=== PATIENT | female | born 1990 | race Caucasian/White ===

== ENCOUNTER 2017-09-12 13:18 | Emergency (ER) | payer OTHER ==
[2017-09-12] MEDS ORDERED: SODIUM CHLORIDE 0.9% 1,000 ML IV STA (14:54)
[2017-09-12 15:23] LABS: Basophils % (A) 1 %; CH 32.5; Eosinophils % (A) 1 %; HCT 41.7 % (34.0-46.0); HDW 2.26; HGB 13.6 gm/dL (11.4-16.0); Luc # (Auto) 0.11; Luc % (Auto) 2; Lymphocytes # (A) 0.9 k/uL (1.0-4.8); Lymphocytes % (A) 17 %; MCH 31.4 pg (25.0-35.0); MCHC 32.7 g/dL (31.0-37.0); MCV 96.1 fL (80.0-100.0); Monocytes # (A) 0.4 k/uL (0-1.0); Monocytes % (A) 8 %; Neutrophils # (A) 3.8 k/uL (1.3-7.7); Neutrophils % (A) 72 %; RBC 4.34 m/uL (3.80-5.40); RDW 12.1 % (11.5-15.5); WBC 5.2 k/uL (3.8-10.6); WBC (Perox) 5.46
[2017-09-12 15:25] VITALS: TEMP 98
[2017-09-12 15:33] LABS: ALT 24 U/L (9-52); AST 31 U/L (14-36); Alkaline Phosphatase 63 U/L (38-126); Anion Gap 7 mmol/L; Blood Urea Nitrogen 16 mg/dL (7-17); Carbon Dioxide 27 mmol/L (22-30); Chloride 103 mmol/L (98-107); Glucose 102 mg/dL (74-99); Non-African American GFR(MDRD) >60 (>60 ml/min/1.73 sqM); Potassium 4.4 mmol/L (3.5-5.1); Sodium 137 mmol/L (137-145); Total Bilirubin 0.4 mg/dL (0.2-1.3); Total Protein 6.8 g/dL (6.3-8.2)
--- NOTE | 2017-09-12 15:44 | XR ---
EXAMINATION TYPE: XR chest 2V DATE OF EXAM: 09/12/2017 COMPARISON: None HISTORY: 27-year-old female difficulty breathing TECHNIQUE: PA and lateral views FINDINGS: The cardiomediastinal silhouette, aorta, and pulmonary vasculature are within normal limits. Minimal peribronchial cuffing. Prominent to the retrosternal clear space. Lungs and pleural spaces are clear. IMPRESSION: There is mild hyperinflation and minimal peribronchial cuffing. Query possibility of asthma. Otherwis e, no acute cardiopulmonary process.
--- NOTE | 2017-09-12 16:05 | ED ---
General Adult HPI - General Chief complaint: Recheck/Abnormal Lab/Rx Stated complaint: Dr Rodriguez Low Blood Pressure Time Seen by Provider: 09/12/17 14:44 Source: patient Mode of arrival: ambulatory Limitations: no limitations - History of Present Illness Initial comments: 27 years O female went to walk-in clinic to get a clear rest that she can go back to work since he has flu they noticed her blood pressure was quite low they got concerned that she is anemic with a [facility] to get her CBC checked and further investigation into low blood pressure her blood pressure was in 90s at the walk-in clinic the blood pressure was 110 and she was seen in here she has been coughing for 3 days been having some headaches no fever running nose. She said it seems like typical flu and no neck stiffness no signs of any meningitis no blurred vision no slurred speech no shortness of breath no chest pain no pleuritic chest pain - Related Data Home Medications Medication Instructions Recorded Confirmed Buprenorphine HCl/Naloxone HCl 1 film SL DAILY 09/12/17 09/12/17 [Suboxone 8 mg-2 mg Sl Film] Allergies Allergy/AdvReac Type Severity Reaction Status Date / Time sulfamethoxazole Allergy Rash/Hives Verified 09/12/17 14:26 [From Bactrim] trimethoprim [From Bactrim] Allergy Rash/Hives Verified 09/12/17 14:26 Review of Systems ROS Statement: Those systems with pertinent positive or pertinent negative responses have been documented in the HPI. ROS Other: All systems not noted in ROS Statement are negative. Past Medical History Past Medical History: No Reported History History of Any Multi-Drug Resistant Organisms: None Reported Past Surgical History: No Surgical Hx Reported Past Psychological History: No Psychological Hx Reported Smoking Status: Current every day smoker Past Alcohol Use History: Occasional Past Drug Use History: None Reported General Exam - General Exam Comments Initial Comments: General: The patient is awake and alert, in no distress, and does not appear acutely ill. Skin: Skin is warm and dry and no rashes or lesions are noted. Eye: Pupils are equal, round and reactive to light, extra-ocular movements are intact; there is normal conjunctiva bilaterally. Ears, nose, mouth and throat: There are moist mucous membranes and no oral lesions. He does have a running nose Neck: The neck is supple, there is no tenderness Cardiovascular: There is a regular rate and rhythm. No murmur, rub or gallop is appreciated. Respiratory: To auscultation bilateral, wrist mild wheezing, no retractions or signs of respiratory distress or failure Gastrointestinal: Soft, non-distended, non-tender abdomen without masses or organomegaly noted. There is no rebound or guarding present. Bowel sounds are unremarkable. Back: There is no tenderness to palpation in the midline. There is no obvious deformity. Musculoskeletal: Normal ROM, no tenderness, There is no pedal edema. There is no calf tenderness or swelling. No cords were appreciated. Neurological: CN II-XII intact, Cranial nerves III through XII are intact. There are no obvious motor or sensory deficits. Coordination appears grossly intact. Speech is normal. Psychiatric: Cooperative, appropriate mood & affect, normal judgment. Limitations: no limitations Course Vital Signs 09/12/17 09/12/17 13:49 15:25 Temperature 98.3 F 98.0 F Pulse Rate 68 63 Respiratory 16 17 Rate Blood Pressure 110/59 99/56 O2 Sat by Pulse 99 97 Oximetry Her labs are reviewed and she is reassessed at 1600, CBC, comp his metabolic panel flu a flu B are all negative chest x-ray ruled out any pneumonia clinically she looks good blood pressure is 110 systolic which is absolutely normal for a young lady who is rather physically fit with a BMI of 21 the seems appropriate blood pressure systolic is 110 she is advised to drink plenty of fluids and f/u her family doctor Medical Decision Making - Lab Data Result diagrams: 09/12/17 15:16 09/12/17 15:13 Lab Results 09/12/17 09/12/17 09/12/17 Range/Units 15:13 15:13 15:16 WBC 5.2 (3.8-10.6) k/uL RBC 4.34 (3.80-5.40) m/uL Hgb 13.6 (11.4-16.0) gm/dL Hct 41.7 (34.0-46.0) % MCV 96.1 (80.0-100.0) fL MCH 31.4 (25.0-35.0) pg MCHC 32.7 (31.0-37.0) g/dL RDW 12.1 (11.5-15.5) % Plt Count 255 (150-450) k/uL Neutrophils % 72 % Lymphocytes % 17 % Monocytes % 8 % Eosinophils % 1 % Basophils % 1 % Neutrophils # 3.8 (1.3-7.7) k/uL Lymphocytes # 0.9 L (1.0-4.8) k/uL Monocytes # 0.4 (0-1.0) k/uL Eosinophils # 0.0 (0-0.7) k/uL Basophils # 0.0 (0-0.2) k/uL Sodium 137 (137-145) mmol/L Potassium 4.4 (3.5-5.1) mmol/L Chloride 103 (98-107) mmol/L Carbon Dioxide 27 (22-30) mmol/L Anion Gap 7 mmol/L BUN 16 (7-17) mg/dL Creatinine 0.56 (0.52-1.04) mg/dL Est GFR (MDRD) Af Amer >60 (>60 ml/min/1.73 sqM) Est GFR (MDRD) Non-Af >60 (>60 ml/min/1.73 sqM) Glucose 102 H (74-99) mg/dL Calcium 9.0 (8.4-10.2) mg/dL Total Bilirubin 0.4 (0.2-1.3) mg/dL AST 31 (14-36) U/L ALT 24 (9-52) U/L Alkaline Phosphatase 63 (38-126) U/L Total Protein 6.8 (6.3-8.2) g/dL Albumin 4.0 (3.5-5.0) g/dL Influenza Type A RNA Not Detected (Not Detectd) Influenza Type B (PCR) Not Detected (Not Detectd) Disposition Clinical Impression: Hypotension Disposition: HOME SELF-CARE Condition: Good Instructions: Hypotension (ED) Referrals: Mahad Easton DO [Primary Care Provider] - 1-2 days
[2017-09-12 16:30] VITALS: BP 100/59; PULSE 69; RESP 16
== END 2017-09-12 16:30 | disposition home or self-care (01) ==
LOC: EC 13:18
DX: I95.9 Hypotension, unspecified (principal); R09.89 Other specified symptoms and signs involving the circulatory and respiratory systems; R06.2 Wheezing; R05 Cough; R51 Headache; F17.200 Nicotine dependence, unspecified, uncomplicated; Z79.899 Other long term (current) drug therapy; Z88.1 Allergy status to other antibiotic agents
CPT/HCPCS: 36415; 71020; 80053; 85025; 87502; 96360; 99285